=== PATIENT | male | born 1990 | race Caucasian/White ===

== ENCOUNTER 2021-01-25 20:56 | Emergency (ER) | payer OTHER ==
[~2021-01-25] VITALS: Ht 175.3 cm; Wt 72.6 kg
[2021-01-25] MEDS ORDERED: PENICILLIN VK250 MG PO (21:47)
[2021-01-25] MEDS ORDERED: NAPROSYN500 M1 PO (21:47)
[2021-01-25 22:11] VITALS: BP 132/86
== END 2021-01-25 22:12 | disposition home or self-care (01) ==
LOC: M.ERS 20:56
DX: K02.9 Dental caries, unspecified (principal); K04.7 Periapical abscess without sinus